=== PATIENT | male | born 1960 | race Caucasian/White ===

== ENCOUNTER 2025-04-01 10:21 | Inpatient (IN) ==
[2025-03-28 16:01] LABS: INR 1.0 (0.9-1.1); Prothrombin Time 13.7 sec (11.9-14.5)
[2025-03-28 16:17] LABS: ALT/SGPT 50 U/L (<40); AST/SGOT 47 U/L (<40); Albumin 4.5 gm/dL (3.2-5.2); Albumin/Globulin Ratio 1.6 (1.0-2.3); Alkaline Phosphatase 79 U/L (39-117); Anion Gap 8.0 (8.0-16.0); Bilirubin,Total 0.7 mg/dL (0.1-1.0); Blood Urea Nitrogen 18 mg/dL (8-23); Calcium 9.5 mg/dL (8.6-10.4); Carbon Dioxide 27 mmol/L (22-30); Chloride 106 mmol/L (96-108); Globulin 2.8 gm/dL (2.2-3.7); Glucose 96 mg/dL (70-105); Potassium 3.8 mmol/L (3.3-5.1); Sodium 141 mmol/L (133-145)
[2025-03-28 16:37] LABS: Basophils # (Auto) 0.04 K/mcL (0.00-0.30); Basophils % (Auto) 0.6 % (0.0-2.0); Eosinophils # (Auto) 0.50 K/mcL (0.00-0.70); Eosinophils % (Auto) 7.2 % (0.0-7.0); Hematocrit 45.9 % (40.1-51.0); Hemoglobin 15.8 g/dL (13.7-17.5); Lymphocytes # (Auto) 1.97 K/mcL (1.50-4.80); Lymphocytes % (Auto) 28.5 % (15.5-49.0); Mean Corpuscular HGB Conc 34.4 g/dL (31.0-36.0); Monocytes # (Auto) 0.45 K/mcL (0.10-0.90); Monocytes % (Auto) 6.5 % (1.0-12.0); Neutrophils % (Auto) 57.1 % (38.0-78.0); Platelet Count 281 K/mcL (140-440); RBC 5.01 M/mcL (4.63-6.08); WBC 6.9 K/mcL (4.5-11.0)
[2025-03-28 16:57] LABS: Estimated Average Glucose(eAG) 123 mg/dL; Hemoglobin A1C 5.9 % Hgb (4.0-6.0)
[2025-03-28 19:17] LABS: Bilirubin,Urine Negative (Negative); Color,Urine YELLOW; Glucose,Urine (UA) Negative (Negative); Ketones,Urine Negative (Negative); Leukocyte Esterase,Urine Negative /uL (Negative); PH,Urine 5.0 (5.0-9.0); Protein,Urine Negative (Negative); Specific Gravity,Urine 1.011 (1.000-1.035); Urobilinogen,Urine Negative
[2025-04-01] MEDS: ACETAMINOPHEN 500 MG TABLET PO SCH (11:15)
[2025-04-01] MEDS: PREGABALIN 75 MG CAPSULE PO SCH (11:16)
[2025-04-01] MEDS: oxyCODONE 10 MG TAB.ER.12H PO SCH (11:16)
[2025-04-01] MEDS: CELECOXIB 200 MG CAPSULE PO SCH (11:17)
[2025-04-01] MEDS ORDERED: ONDANSETRON 4 MG/2 ML VIAL ONE (13:55)
[2025-04-01] MEDS ORDERED: DEXAMETHASONE 10 MG/ML VIAL ONE (13:55)
[2025-04-01] MEDS ORDERED: KETOROLAC 30 MG/ML VIAL ONE (13:55)
[2025-04-01] MEDS ORDERED: LIDOCAINE 2% PF 5 ML VIAL ONE (13:55)
[2025-04-01] MEDS ORDERED: TRANEXAMIC ACID 1,000 MG/10 ML VIAL ONE (13:55)
[2025-04-01] MEDS ORDERED: GLYCOPYRROLATE 0.2 MG/ML VIAL IV ONE (13:55)
[2025-04-01] MEDS ORDERED: FAMOTIDINE/PF 20 MG/2 ML VIAL IV ONE (13:58)
[2025-04-01] MEDS ORDERED: MIDAZOLAM 2 MG/2 ML VIAL ONE (13:58)
[2025-04-01] MEDS ORDERED: PROPOFOL 200 MG/20 ML VIAL IV ONE (13:58)
[2025-04-01] MEDS: ceFAZolin 2 GM in DEXTROSE 5% IN WATER 50 ML IV SCH (14:58)
[2025-04-01] MEDS ORDERED: BUPIVACAINE LIPOSOMAL 1.3% 10 ML VIAL IJ ONE (15:25)
[2025-04-01] MEDS ORDERED: PHENYLephrine 1 MG/10 ML SYRINGE (ANEST) ONE (15:34)
[2025-04-01] MEDS ORDERED: VASOPRESSIN 20 UNIT/ML VIAL ONE (15:34)
[2025-04-01] MEDS ORDERED: ePHEDrine 50 MG/5 ML SYRINGE (ANEST) IV ONE (15:34)
[2025-04-01] MEDS ORDERED: DROPERIDOL 5 MG/2 ML VIAL IV PRN (15:38)
[2025-04-01] MEDS ORDERED: fentaNYL 100 MCG/2 ML VIAL IV PRN (15:38)
[2025-04-01] MEDS ORDERED: HYDROmorphone 0.5 MG/0.5 ML SYRINGE IV PRN (15:38)
[2025-04-01] MEDS ORDERED: IPRATROPIUM/ALBUTEROL 3 ML AMPUL.NEB NEB PRN (15:38)
[2025-04-01] MEDS: 0.9 % SODIUM CHLORIDE 9 ML, KETOROLAC 30 MG, ROPIVACAINE HCL/PF 49.5 ML, EPINEPHrine 0.... IJ SCH (15:43)
[2025-04-01] MEDS ORDERED: BENZOCAINE/MENTHOL 1 LOZENGE PO PRN (15:51)
[2025-04-01] MEDS ORDERED: TEMAZEPAM 15 MG CAPSULE PO PRN (15:51)
[2025-04-01] MEDS ORDERED: MAGNESIUM HYDROXIDE 30 ML ORAL.SUSP PO PRN (15:51)
[2025-04-01] MEDS: TRANEXAMIC ACID 1,000 MG/10 ML VIAL IV ONE (16:20)
[2025-04-01] MEDS: ONDANSETRON 4 MG/2 ML VIAL IV PRN (16:25)
[2025-04-01] MEDS ORDERED: ACETAMINOPHEN 325 MG TABLET PO PRN (17:00)
[2025-04-01] MEDS: LACTATED RINGERS 1,000 ML IV SCH (17:47)
[2025-04-01] MEDS: 0.9 % SODIUM CHLORIDE 1,000 ML IV SCH (17:48)
[2025-04-01] MEDS: KETOROLAC 15 MG/ML VIAL IV PRN (19:44)
[2025-04-01] MEDS: ASPIRIN 81 MG TAB.CHEW CHEWED SCH (20:51)
[2025-04-01] MEDS: DOCUSATE SODIUM 100 MG CAPSULE PO SCH (20:51)
[2025-04-01] MEDS: 0.9 % SODIUM CHLORIDE 10 ML SYRINGE IV SCH (20:52)
[2025-04-02 08:17] VITALS: TEMP 97.5; O2SAT 96
[2025-04-02] MEDS: HYDROCHLOROTHIAZIDE 12.5 MG CAPSULE PO SCH (08:40)
[2025-04-02] MEDS: LISINOPRIL 20 MG TABLET PO SCH (08:42)
[2025-04-02] MEDS: LEVOTHYROXINE SODIUM 112 MCG TABLET PO SCH (08:42)
[2025-04-02] MEDS: METOPROLOL TARTRATE 50 MG TABLET PO SCH (08:42)
== END 2025-04-02 10:20 | disposition home or self-care (01) | DRG 489 ==
LOC: MEDSUR 10:21
PROVIDERS: ADMIT Orthopaedic Surgery; ATTEND Orthopaedic Surgery